=== PATIENT | male | born 1945 | race Caucasian/White ===

== ENCOUNTER 2019-10-23 11:19 | Inpatient (IN) | payer OTHER, SELFPAY ==
[~2019-10-23] VITALS: Ht 177.8 cm; Wt 63.5 kg
[2019-10-23] MEDS ORDERED: cefTRIAXone 1 GM IVPB PREMIX 50 ML IV ONE (11:30)
[2019-10-23 12:11] VITALS: BP_SYST 89
[2019-10-23 12:32] LABS: ANION GAP 8 (5-15); CALCIUM 9.1 mg/dL (8.4-11.0); CHLORIDE 102 mmol/L (98-107); CREATININE 2.44 mg/dL (0.55-1.30); GLUCOSE 101 mg/dL (70-99); POTASSIUM 3.8 mmol/L (3.5-5.1); SODIUM SERUM 136 mmol/L (136-145); UREA NITROGEN, BLOOD 23 mg/dL (8-21)
[2019-10-23 12:34] LABS: BASOPHILS % (AUTO) 0.8 % (0.0-2.0); EOSINOPHILS # (AUTO) 1.1 K/uL (0.0-0.4); HEMATOCRIT 30.3 % (36-54); HEMOGLOBIN 10.2 g/dL (14.0-18.0); LYMPHOCYTES # (AUTO) 1.2 K/uL (1.0-5.5); LYMPHOCYTES % (AUTO) 18.3 % (20.5-51.5); MEAN CORPUSCULAR HEMOGLOBIN 35 pg (27-31); MEAN CORPUSCULAR HGB CONC 34 % (32-36); MEAN CORPUSCULAR VOLUME 103 fL (79.0-98.0); MONOCYTES # (AUTO) 0.6 K/uL (0.0-1.0); MONOCYTES % (AUTO) 9.1 % (1.7-9.3); NEUTROPHILS # (AUTO) 3.4 K/uL (1.8-7.7); NEUTROPHILS % (AUTO) 53.8 % (40.0-70.0); PLATELET COUNT (AUTO) 420 K/uL (130-430); RED BLOOD CELL COUNT(AUTO) 2.94 MIL/uL (4.2-6.2); RED CELL DISTRIBUTION WIDTH 14.7 % (9.0-15.0); WHITE BLOOD COUNT (AUTO) 6.3 K/uL (4.8-10.8)
[2019-10-23 12:38] LABS: ALANINE AMINOTRANSFERASE 43 U/L (12-78); ALBUMIN 1.9 g/dL (3.4-4.8); ASPARTATE AMINOTRANSFERASE 71 U/L (10-37); TOTAL BILIRUBIN 0.4 mg/dL (0.0-1.0)
[2019-10-23 13:31] LABS: BILIRUBIN,URINE NEGATIVE (NEGATIVE); BLOOD, URINE NEGATIVE (NEGATIVE); CLARITY/URINE SL CLOUDY (CLEAR); COLOR,URINE YELLOW (YELLOW); GLUCOSE,URINE NEGATIVE (NEGATIVE); KETONES,URINE TRACE (NEGATIVE); LEUKOCYTE ESTERASE ,URINE NEGATIVE (NEGATIVE); NITRITE, URINE NEGATIVE (NEGATIVE); PH,URINE 5.5 (5.0-8.0); PROTEIN URINE TRACE (NEGATIVE); UROBILINOGEN,URINE 0.2 (0.2-1.0)
[2019-10-23] MEDS ORDERED: IPRATROPIUM/ALBUTEROL SULFATE 3 ML AMPUL.NEB (DUONEB) INH PRN (14:45)
[2019-10-23] MEDS ORDERED: SENN8.6T19 PO (15:17)
[2019-10-23] MEDS ORDERED: RENA VITE PO (15:17)
[2019-10-23] MEDS ORDERED: NYSSUS PO (15:17)
[2019-10-23] MEDS ORDERED: FLUC200T PO (15:17)
[2019-10-23] MEDS ORDERED: FLUT1AER PO (15:17)
[2019-10-23] MEDS ORDERED: PRO40 PO (15:17)
[2019-10-23] MEDS ORDERED: ALBMDI PO (15:17)
[2019-10-23] MEDS ORDERED: DOCU-144 PO (15:17)
[2019-10-23 17:18] VITALS: BP_SYST 143
[2019-10-23 18:13] VITALS: BP_SYST 110
[2019-10-23 20:00] VITALS: BP_SYST 110
[2019-10-23] MEDS ORDERED: cefTRIAXone 1 GM IVPB PREMIX 50 ML IV SCH (21:15)
[2019-10-23] MEDS: AZITHROMYCIN 500 MG in NS 250 ML IV SCH (21:15)
[2019-10-24] VITALS: BP_SYST 103
[2019-10-24] MEDS ORDERED: HEPARIN SODIUM,PORCINE 5000 UNITS/ML VIAL IVP ONE (01:15)
[2019-10-24] MEDS ORDERED: HEPARIN SODIUM,PORCINE 2000 UNITS/0.4 ML BOLUS IVP PRN (01:15)
[2019-10-24] MEDS ORDERED: HEPARIN SODIUM,PORCINE 3000 UNITS/0.6 ML BOLUS IVP PRN (01:15)
[2019-10-24] MEDS ORDERED: AZITHROMYCIN 500 MG/VIAL (ZITHROMAX) IV ONE (02:17)
[2019-10-24] MEDS: HEPARIN 25,000 UNITS/D5W 250mL PREMIX IV PRN (02:35)
[2019-10-24 08:08] VITALS: BP_SYST 120
[2019-10-24] MEDS: cefTRIAXone 1 GM IVPB PREMIX 50 ML IV SCH (09:12)
[2019-10-24 12:11] VITALS: BP_SYST 117
[2019-10-24 17:55] VITALS: BP_SYST 127
[2019-10-24 20:00] VITALS: BP_SYST 108
[2019-10-24] MEDS ORDERED: *HEPARIN PER PHARMACY XX PRN (21:15)
[2019-10-24] MEDS: AZITHROMYCIN 500 MG in NS 250 ML IV SCH (22:20)
[2019-10-25 00:07] VITALS: BP_SYST 114
[2019-10-25] MEDS: 0.45% NACL 1,000 ML IV SCH ×2 (06:13→21:35)
[2019-10-25 08:00] VITALS: BP_SYST 105
[2019-10-25] MEDS: HEPARIN 25,000 UNITS/D5W 250mL PREMIX IV PRN (08:43)
[2019-10-25] MEDS: cefTRIAXone 1 GM IVPB PREMIX 50 ML IV SCH (09:16)
[2019-10-25 10:52] LABS: BASOPHILS # (AUTO) 0.1 K/uL (0.0-0.2); BASOPHILS % (AUTO) 0.7 % (0.0-2.0); EOSINOPHILS # (AUTO) 1.6 K/uL (0.0-0.4); EOSINOPHILS % (AUTO) 19.2 % (0.0-4.0); HEMATOCRIT 28.8 % (36-54); LYMPHOCYTES # (AUTO) 0.9 K/uL (1.0-5.5); LYMPHOCYTES % (AUTO) 10.5 % (20.5-51.5); MEAN CORPUSCULAR HEMOGLOBIN 36 pg (27-31); MEAN CORPUSCULAR HGB CONC 35 % (32-36); MEAN CORPUSCULAR VOLUME 103 fL (79.0-98.0); MONOCYTES # (AUTO) 0.4 K/uL (0.0-1.0); MONOCYTES % (AUTO) 4.5 % (1.7-9.3); NEUTROPHILS # (AUTO) 5.3 K/uL (1.8-7.7); NEUTROPHILS % (AUTO) 65.1 % (40.0-70.0); PLATELET COUNT (AUTO) 371 K/uL (130-430); RED BLOOD CELL COUNT(AUTO) 2.81 MIL/uL (4.2-6.2); RED CELL DISTRIBUTION WIDTH 14.6 % (9.0-15.0); WHITE BLOOD COUNT (AUTO) 8.1 K/uL (4.8-10.8)
[2019-10-25 11:07] LABS: ANION GAP 9 (5-15); CALCIUM 9.2 mg/dL (8.4-11.0); CHLORIDE 101 mmol/L (98-107); CREATININE 2.73 mg/dL (0.55-1.30); GLUCOSE 100 mg/dL (70-99); POTASSIUM 3.8 mmol/L (3.5-5.1); SODIUM SERUM 134 mmol/L (136-145); UREA NITROGEN, BLOOD 33 mg/dL (8-21)
[2019-10-25 11:12] LABS: ALANINE AMINOTRANSFERASE 33 U/L (12-78); ASPARTATE AMINOTRANSFERASE 49 U/L (10-37); TOTAL BILIRUBIN 0.3 mg/dL (0.0-1.0)
[2019-10-25 12:29] VITALS: BP_SYST 99
[2019-10-25 13:03] LABS: BILIRUBIN,URINE NEGATIVE (NEGATIVE); CLARITY/URINE SL CLOUDY (CLEAR); COLOR,URINE YELLOW (YELLOW); GLUCOSE,URINE NEGATIVE (NEGATIVE); KETONES,URINE TRACE (NEGATIVE); LEUKOCYTE ESTERASE ,URINE NEGATIVE (NEGATIVE); NITRITE, URINE NEGATIVE (NEGATIVE); PH,URINE 5.5 (5.0-8.0); PROTEIN URINE 1+ (NEGATIVE); UROBILINOGEN,URINE 0.2 (0.2-1.0)
[2019-10-25 13:15] LABS: BLOOD, URINE TRACE (NEGATIVE)
[2019-10-25 13:18] LABS: BACTERIA,URINE FEW /HPF (None Seen); FINE GRANULAR CASTS,URINE 0-10 /LPF (None Seen); WBC,URINE 0-3 /HPF (0-3)
[2019-10-25] MEDS ORDERED: CHOLECALCIFEROL (VITAMIN D3) 2,000 UNIT TABLET PO ONE (13:30)
[2019-10-25] MEDS ORDERED: ASCORBIC ACID 500 MG TABLET PO ONE (13:30)
[2019-10-25 16:00] VITALS: BP_SYST 119
[2019-10-25 20:53] VITALS: BP_SYST 101
[2019-10-25] MEDS: AZITHROMYCIN 500 MG in NS 250 ML IV SCH (21:35)
[2019-10-25] MEDS ORDERED: LORazepam 2 MG/ML VIAL IVP ONE (22:45)
[2019-10-26 00:39] VITALS: BP_SYST 96
[2019-10-26] MEDS: 0.45% NACL 1,000 ML IV SCH (06:14)
[2019-10-26 07:31] LABS: BASOPHILS # (AUTO) 0.1 K/uL (0.0-0.2); BASOPHILS % (AUTO) 1.1 % (0.0-2.0); EOSINOPHILS # (AUTO) 1.6 K/uL (0.0-0.4); EOSINOPHILS % (AUTO) 18.9 % (0.0-4.0); HEMATOCRIT 26.9 % (36-54); HEMOGLOBIN 9.1 g/dL (14.0-18.0); LYMPHOCYTES # (AUTO) 0.9 K/uL (1.0-5.5); LYMPHOCYTES % (AUTO) 10.2 % (20.5-51.5); MEAN CORPUSCULAR HEMOGLOBIN 35 pg (27-31); MEAN CORPUSCULAR HGB CONC 34 % (32-36); MEAN CORPUSCULAR VOLUME 102 fL (79.0-98.0); MONOCYTES # (AUTO) 0.4 K/uL (0.0-1.0); MONOCYTES % (AUTO) 4.4 % (1.7-9.3); NEUTROPHILS # (AUTO) 5.5 K/uL (1.8-7.7); NEUTROPHILS % (AUTO) 65.4 % (40.0-70.0); PLATELET COUNT (AUTO) 336 K/uL (130-430); RED BLOOD CELL COUNT(AUTO) 2.63 MIL/uL (4.2-6.2); RED CELL DISTRIBUTION WIDTH 15.1 % (9.0-15.0); WHITE BLOOD COUNT (AUTO) 8.4 K/uL (4.8-10.8)
[2019-10-26 07:36] LABS: ALANINE AMINOTRANSFERASE 30 U/L (12-78); ALBUMIN 1.6 g/dL (3.4-4.8); ANION GAP 14 (5-15); ASPARTATE AMINOTRANSFERASE 52 U/L (10-37); CALCIUM 9.1 mg/dL (8.4-11.0); CHLORIDE 104 mmol/L (98-107); CREATININE 3.22 mg/dL (0.55-1.30); GLUCOSE 75 mg/dL (70-99); POTASSIUM 4.2 mmol/L (3.5-5.1); SODIUM SERUM 137 mmol/L (136-145); TOTAL BILIRUBIN 0.3 mg/dL (0.0-1.0); UREA NITROGEN, BLOOD 36 mg/dL (8-21)
[2019-10-26 08:45] VITALS: BP_SYST 99
[2019-10-26] MEDS: cefTRIAXone 1 GM IVPB PREMIX 50 ML IV SCH (08:51)
[2019-10-26] MEDS: ASCORBIC ACID 500 MG TABLET PO SCH (09:00)
[2019-10-26] MEDS: CHOLECALCIFEROL (VITAMIN D3) 2,000 UNIT TABLET PO SCH (09:00)
[2019-10-26 12:00] VITALS: BP_SYST 96
[2019-10-26] MEDS: HEPARIN 25,000 UNITS/D5W 250mL PREMIX IV PRN (16:00)
[2019-10-26 16:17] VITALS: BP_SYST 104
[2019-10-26] MEDS: AZITHROMYCIN 500 MG in NS 250 ML IV SCH (21:15)
[2019-10-26 21:18] VITALS: BP_SYST 109
[2019-10-27] VITALS (25 sets, daily range): BP systolic 54–140
[2019-10-27] MEDS: 0.45% NACL 1,000 ML IV SCH ×3 (00:14→20:18)
[2019-10-27 06:57] LABS: BASOPHILS % (AUTO) 0.4 % (0.0-2.0); EOSINOPHILS # (AUTO) 1.5 K/uL (0.0-0.4); EOSINOPHILS % (AUTO) 14.5 % (0.0-4.0); HEMATOCRIT 27.1 % (36-54); HEMOGLOBIN 9.2 g/dL (14.0-18.0); LYMPHOCYTES % (AUTO) 9.1 % (20.5-51.5); MEAN CORPUSCULAR HEMOGLOBIN 35 pg (27-31); MEAN CORPUSCULAR HGB CONC 34 % (32-36); MEAN CORPUSCULAR VOLUME 104 fL (79.0-98.0); MONOCYTES # (AUTO) 0.4 K/uL (0.0-1.0); MONOCYTES % (AUTO) 3.9 % (1.7-9.3); NEUTROPHILS # (AUTO) 7.6 K/uL (1.8-7.7); NEUTROPHILS % (AUTO) 72.1 % (40.0-70.0); PLATELET COUNT (AUTO) 280 K/uL (130-430); RED BLOOD CELL COUNT(AUTO) 2.61 MIL/uL (4.2-6.2); RED CELL DISTRIBUTION WIDTH 14.8 % (9.0-15.0); WHITE BLOOD COUNT (AUTO) 10.5 K/uL (4.8-10.8)
[2019-10-27 07:23] LABS: ALANINE AMINOTRANSFERASE 29 U/L (12-78); ALBUMIN 1.4 g/dL (3.4-4.8); ANION GAP 15 (5-15); ASPARTATE AMINOTRANSFERASE 65 U/L (10-37); CALCIUM 8.8 mg/dL (8.4-11.0); CHLORIDE 103 mmol/L (98-107); CREATININE 3.71 mg/dL (0.55-1.30); POTASSIUM 4.5 mmol/L (3.5-5.1); SODIUM SERUM 136 mmol/L (136-145); TOTAL BILIRUBIN 0.3 mg/dL (0.0-1.0); UREA NITROGEN, BLOOD 38 mg/dL (8-21)
[2019-10-27 07:26] LABS: GLUCOSE 48 mg/dL (70-99)
[2019-10-27] MEDS ORDERED: DEXTROSE 50% JECT 50 ML DISP.SYRIN ONE ×2 (07:50→09:58)
[2019-10-27] MEDS ORDERED: NACL 0.9% 1,000 ML IV ONE (08:00)
[2019-10-27] MEDS ORDERED: DEXTROSE 50% JECT 50 ML DISP.SYRIN IVP ONE (08:00)
[2019-10-27] MEDS ORDERED: ALBUMIN HUMAN 25% 100 ML IV ONE (09:00)
[2019-10-27] MEDS ORDERED: THIAMINE HCL 100 MG TABLET PO SCH (09:00)
[2019-10-27] MEDS ORDERED: FOLIC ACID 1 MG TABLET PO SCH (09:00)
[2019-10-27] MEDS ORDERED: LACTULOSE 20 GM/30 ML UDC PO SCH (09:00)
[2019-10-27] MEDS ORDERED: FAMOTIDINE PF 20 MG/2 ML VIAL IVP SCH (09:00)
[2019-10-27] MEDS ORDERED: NOREPINEPHRINE BITARTRATE 4 MG in NS 246 ML IV PRN (09:15)
[2019-10-27] MEDS: NOREPINEPHRINE BITARTRATE 4 MG in D5W 250 ML IV PRN ×3 (09:28→16:59)
[2019-10-27 11:35] LABS: INR 1.3 (0.80-1.20); PROTHROMBIN TIME 12.8 SECS (9.5-12.5)
[2019-10-27] MEDS: PIPERACILLIN/TAZOBACTAM 2.25 GM/ D5W 50 ML IV SCH ×6 (12:01→20:17)
[2019-10-27] MEDS ORDERED: PROPOFOL DRIP 100 ML IV ONE (12:44)
[2019-10-27] MEDS ORDERED: DOPamine PREMIX 250 ML IV ONE (12:49)
[2019-10-27] MEDS ORDERED: PROPOFOL DRIP 100 ML IV PRN (13:00)
[2019-10-27] MEDS: CHOLECALCIFEROL (VITAMIN D3) 2,000 UNIT TABLET PO SCH (13:53)
[2019-10-27] MEDS: ASCORBIC ACID 500 MG TABLET PO SCH (13:53)
[2019-10-27] MEDS: DOPamine PREMIX 250 ML IV PRN ×4 (13:55→20:41)
[2019-10-27] MEDS ORDERED: PIPERACILLIN/TAZO 4.5GM/DEX-IS 100 ML IV SCH (14:00)
[2019-10-27] MEDS ORDERED: SUCCINYLCHOLINE CHLORIDE 20 MG/ML(QUELICIN) IVP ONE (14:06)
[2019-10-27] MEDS ORDERED: ETOMIDATE 20 MG/ 10 ML VIAL (AMIDATE) IVP ONE (14:06)
[2019-10-27] MEDS: PHENYLEPHRINE HCL 30 MG in NS 247 ML IV PRN ×3 (14:34→18:57)
[2019-10-27] MEDS ORDERED: NOREPINEPHRINE 4 MG/4 ML VIAL IV ONE (15:14)
[2019-10-27] MEDS ORDERED: HYDROCORTISONE SOD SUCC 100 MG/2 ML VIAL IVP SCH (20:15)
[2019-10-27] MEDS ORDERED: LR 1,000 ML IV ONE (20:15)
[2019-10-27] MEDS: AZITHROMYCIN 500 MG in NS 250 ML IV SCH (20:18)
[2019-10-27] MEDS ORDERED: HYDROCORTISONE SOD SUCC 100 MG/2 ML VIAL ONE (20:39)
== END 2019-10-27 21:39 | disposition expired | DRG 871 ==
LOC: SED 11:19 → EEVIPCON 11:19 → STU 14:46 → SIC 10-27 09:03
PROVIDERS: ADMIT Internal Medicine Hospice and Palliative Medicine; ATTEND Internal Medicine Hospice and Palliative Medicine
PROC: 5A1935Z Respiratory Ventilation, Less than 24 Consecutive Hours (ICD-10-PCS; principal; 2019-10-27)
PROC: 0BH17EZ Insertion of Endotracheal Airway into Trachea, Via Natural or Artificial Opening (ICD-10-PCS; 2019-10-27)
PROC: 02HV33Z Insertion of Infusion Device into Superior Vena Cava, Percutaneous Approach (ICD-10-PCS; 2019-10-27)
PROC: B548ZZA Ultrasonography of Superior Vena Cava, Guidance (ICD-10-PCS; 2019-10-27)
PROC: 5A12012 Performance of Cardiac Output, Single, Manual (ICD-10-PCS; 2019-10-27)
DX: A41.9 Sepsis, unspecified organism (principal); J12.9 Viral pneumonia, unspecified; N17.0 Acute kidney failure with tubular necrosis; J96.21 Acute and chronic respiratory failure with hypoxia; J44.0 Chronic obstructive pulmonary disease with (acute) lower respiratory infection; K76.6 Portal hypertension; N39.0 Urinary tract infection, site not specified; R65.20 Severe sepsis without septic shock; D72.810 Lymphocytopenia; F03.90 Unspecified dementia, unspecified severity, without behavioral disturbance, psychotic disturbance, mood disturbance, and anxiety; I12.9 Hypertensive chronic kidney disease with stage 1 through stage 4 chronic kidney disease, or unspecified chronic kidney disease; Z20.828 Contact with and (suspected) exposure to other viral communicable diseases; N18.9 Chronic kidney disease, unspecified; I46.9 Cardiac arrest, cause unspecified; Z66 Do not resuscitate; Z85.118 Personal history of other malignant neoplasm of bronchus and lung; Z87.891 Personal history of nicotine dependence
CPT/HCPCS: 36415; 36600; 71045; 80053; 81000-TC; 81003; 82803-TC; 82962; 83036; 83605; 84484; 85025; 85379; 85610-TC; 85730-TC; 86710; 87040-TC; 87070-TC; 87081; 87086; 87205-TC; 92950; 93005; 94002; 94640; 96365; 99285; C1751; G0378; J0330; J0456; J0696; J1265; J1644; J1720; J2060; J2370; J2543; J2704; J3490; J7030; J7050; J7060; J7120; P9046; U0002